=== PATIENT | male | born 1975 | race Caucasian/White ===

== ENCOUNTER 2024-11-08 07:25 | Emergency (ER) | payer BC, SELFPAY ==
[2024-11-08 07:27] VITALS: BP 145/98
--- NOTE | 2024-11-08 07:49 | ED.GENMED ---
History of Present Illness
<Sherron Huffman MD, Resident - Last Filed: 11/08/24 09:44>
General
Chief Complaint: Flank Pain
Time Seen by Provider: 11/08/24 07:49
History of Present Illness
History of Present Illness:
This is a 49-year-old male with past medical history of multiple kidney stones presents to ED complaining of right flank pain that radiates to the back. Patient reports pain started this morning, rates pain as an 8 out of 10. Describes pain as
a sharp pain that comes and goes. Laying down makes it worse, walking around makes it better. He reports he had a similar pain as at 6 years ago when he was diagnosed with his 1st and 2nd kidney stone episodes. In addition, patient admits nausea
and vomiting that started this morning. He denies fever, chills. He reports brown urine although no pain with urination and no difficulty urinating. His previous episodes of kidney stones passed on its own.
Past History
<Sherron Huffman MD, Resident - Last Filed: 11/08/24 09:44>
Past History
ED Past Medical History: Other (Kidney stones)
ED Past Surgical History: Orthopedic (Left leg surgery)
Social History
Tobacco: Non-smoker
Alcohol: Occasional
Drug: None
Review of Systems
<Sherron Huffman MD, Resident - Last Filed: 11/08/24 09:44>
Review of Systems
All Other Systems: ROS reviewed and negative except as documented in HPI and ROS
Phy Exam
<Sherron Huffman MD, Resident - Last Filed: 11/08/24 09:44>
General Physical Exam
General Presentation: well appearing and moderate distress
General Mental: alert
ENT Exam
ENT Exam: EOMI and neck supple
Cardiovascular Exam
Cardiovascular Exam: regular rate/rhythm, no edema and no murmur
Pulmonary Exam
Pulmonary Exam: lungs clear and no respiratory distress
Gastrointestinal Exam
Gastrointestinal Exam: normal bowel sounds, soft, non distended and tender (Right lower quadrant tenderness)
Neurological Exam
Neurological Exam: alert and oriented x3
Musculoskeletal Exam
Musculoskeletal Exam: full ROM and no edema
Psychiatric Exam
Psychiatric Exam: normal mood/affect
Course
<Sherron Huffman MD, Resident - Last Filed: 11/08/24 09:44>
Orders/Labs/Results
Orders:
Orders
11/08/24 07:38
Complete Blood Count/With Diff Urgent
Comprehensive Metabolic Panel Urgent
Urinalysis Reflex To Culture Urgent
Date Specimen was Collected: 11/08/24
Time Specimen was Collected: 07:31
Urine Microscopic Reflex Cult Urgent
Urine Culture Urgent
PINA Source: U
Specimen Description:
Obtained by: Random
Date Specimen was Collected: 11/08/24
Time Specimen was Collected: 07:31
11/08/24 08:04
0.9% Sodium Chloride 1000 ml [Nss] 1,000 ml IV BOLUS
HYDROmorphone [Dilaudid] 1 mg IV NOW STA
Ketorolac [Toradol] 30 mg IV NOW STA
Ondansetron Injectable [Zofran] 4 mg IV NOW STA
11/08/24 08:06
CT Abd/pel Without Iv Or Oral Urgent
Comment:
Reason For Exam: rflakn pain
Abnormal Lab Results
11/08/24
07:38
Carbon Dioxide 31 H mmol/L
(22-30)
Glucose 148 H mg/dl
(70-99)
Calcium 10.4 H mg/dl
(8.4-10.2)
Ur Occult Blood Reflex 4+ A
(Negative)
Leukocyte Esterase Rfl 1+ A
(Negative)
Urine RBC >100 A /HPF
(0-2)
Urine Bacteria (Reflex) Few A
(Negative)
Urine Albumin (Reflex) 3+ A
(Neg - Trace)
11/08/24 07:38
11/08/24 07:38
Vital Signs
Initial and Last Documented VS:
Initial Vital Signs
Temp Pulse Resp BP Pulse Ox
98.0 F 67 18 145/98 100
11/08/24 07:27 11/08/24 07:27 11/08/24 07:27 11/08/24 07:27 11/08/24 07:27
Last Documented Vital Signs
Temp Pulse Resp BP Pulse Ox
97.6 F 80 20 131/89 95
11/08/24 08:20 11/08/24 08:20 11/08/24 08:20 11/08/24 08:20 11/08/24 08:20
<Craig Desai, DO - Last Filed: 11/08/24 08:29>
Orders/Labs/Results
Orders:
Orders
11/08/24 07:38
Complete Blood Count/With Diff Urgent
Comprehensive Metabolic Panel Urgent
Urinalysis Reflex To Culture Urgent
Date Specimen was Collected: 11/08/24
Time Specimen was Collected: 07:31
Urine Microscopic Reflex Cult Urgent
Urine Culture Urgent
PINA Source: U
Specimen Description:
Obtained by: Random
Date Specimen was Collected: 11/08/24
Time Specimen was Collected: 07:31
11/08/24 08:04
0.9% Sodium Chloride 1000 ml [Nss] 1,000 ml IV BOLUS
HYDROmorphone [Dilaudid] 1 mg IV NOW STA
Ketorolac [Toradol] 30 mg IV NOW STA
Ondansetron Injectable [Zofran] 4 mg IV NOW STA
11/08/24 08:06
CT Abd/pel Without Iv Or Oral Urgent
Comment:
Reason For Exam: rflakn pain
Abnormal Lab Results
11/08/24
07:38
Carbon Dioxide 31 H mmol/L
(22-30)
Glucose 148 H mg/dl
(70-99)
Calcium 10.4 H mg/dl
(8.4-10.2)
Ur Occult Blood Reflex 4+ A
(Negative)
Leukocyte Esterase Rfl 1+ A
(Negative)
Urine RBC >100 A /HPF
(0-2)
Urine Bacteria (Reflex) Few A
(Negative)
Urine Albumin (Reflex) 3+ A
(Neg - Trace)
11/08/24 07:38
11/08/24 07:38
Vital Signs
Initial and Last Documented VS:
Initial Vital Signs
Temp Pulse Resp BP Pulse Ox
98.0 F 67 18 145/98 100
11/08/24 07:27 11/08/24 07:27 11/08/24 07:27 11/08/24 07:27 11/08/24 07:27
Last Documented Vital Signs
Temp Pulse Resp BP Pulse Ox
97.6 F 80 20 131/89 95
11/08/24 08:20 11/08/24 08:20 11/08/24 08:20 11/08/24 08:20 11/08/24 08:20
<Sherron Huffman MD, Resident - Last Filed: 11/08/24 09:44>
MDM/Problems Addressed
MDM/Problems Addressed:
49-year-old male presents with right flank pain that radiates to the back. In addition, admits nausea and vomiting. Patient in mild distress on presentation, abdomen soft, tender in right lower quadrant region. Labs with normal BUN, creatinine.
Will start on pain meds, IV fluids and Zofran. Check urinalysis, imaging with CT scan of abdomen.
<Sherron Huffman MD, Resident - Last Filed: 11/08/24 09:44>
*Critical Care Note
Total Time (30-74mins, 75-104mins- exclusive of procedures): Not Applicable
ED Attending Note
<Sherron Huffman MD, Resident - Last Filed: 11/08/24 09:44>
-
Portions of this chart may have been created with voice recognition software.� Occasional wrong word or��sound alike� substitutions may have occurred due to the inherent limitations of voice recognition software.
<Craig Desai DO - Last Filed: 11/08/24 08:29>
ED Attending Note
Patient seen and examined by attending physician: Yes
I performed a history and physical exam of patient and discussed management with resident, I reviewed resident's note and agree with documented findings and plan of care.: Yes
ED Attending Note:
Seen with resident examined independently right flank history of stones, nausea sharp, no fever, never required intervention for the stones, CT scan labs antiemetics analgesics
Discharge Plan
Departure
Patient Disposition: Home (Routine Discharge)
Date of Disposition: 11/08/24
Time of Disposition: 09:41
Patient with high blood pressure during this ER visit?: No
Condition: Good
Discharge Problem:
Kidney stone on right side
Instructions: Kidney Stones (DC), Renal Colic (DC)
Prescriptions:
New
tamsulosin [Flomax] 0.4 mg capsule
0.4 mg PO HS Qty: 10 0RF
ibuprofen 600 mg tablet
600 mg PO Q6H PRN (Reason: Pain) Qty: 20 0RF
ondansetron 4 mg tablet,disintegrating
4 mg PO TID PRN (Reason: nausea and vomiting) Qty: 10 0RF
oxycodone-acetaminophen [Percocet] 5-325 mg tablet
1 tab PO Q4HPRN PRN (Reason: pain) Qty: 10 0RF
Referrals:
Pato Carpio MD [Active] -
NONE,* [Family Provider] -
Activity Restrictions/Additional Instructions:
Return to the ER if severe pain uncontrolled with your pain meds or fever or chills
Interventions
Interventions:
*Risk Screen - Suicide Last Done: 11/08/24 07:27
*General Assessment Last Done: 11/08/24 07:27
*Neglect/Abuse Screening Last Done: 11/08/24 07:27
*ED- Fall Risk Assessment Last Done: 11/08/24 08:20
*ED COVID-19 Vaccine History Last Done: 11/08/24 07:27
VV-Lnedvd-Cmwydpwnyb Assessment Last Done: 11/08/24 08:20
ED-Male Genitourinary Assessment Last Done: 11/08/24 08:20
Discharge Date and Time
Print Language: CROATIAN
[2024-11-08 07:54] LABS: % Basophils 0.3 % (0-2); % Eosinophils 1.9 % (0-6); % Immature Granulocytes 0.3 % (0-0.5); % Lymphocytes 25.9 % (20.5-51.1); % Monocytes 5.4 % (1.7-9.3); % Neutrophils 66.2 % (42.2-75.2); Absolute Eosinophils 0.1 10^3/uL (0-0.7); Absolute Lymphocytes 1.9 10^3/uL (1.2-3.4); Absolute Monocytes 0.4 10^3/uL (0.1-0.6); Absolute Neutrophils 4.8 10^3/uL (1.4-6.5); Hematocrit 45.7 % (39.0-52.0); Hemoglobin 15.4 g/dL (13.0-18.0); Mean Corp Hgb Conc. 33.7 g/dL (33.0-37.0); Mean Corpuscular Hgb 29.8 pg (27.0-31.0); Mean Corpuscular Volume 88.4 fL (80.0-94.0); Mean Platelet Volume 9.8 fL (7.4-10.4); Nucleated Red Blood Cells % 0 % (-); Platelet Count 250 10^3/uL (130-400); Red Blood Cell Count 5.17 10^6/uL (4.70-6.10); Red Cell Dist. Width 13.2 % (11.5-14.5); White Blood Cell Count 7.3 10^3/uL (4.8-10.8)
[2024-11-08 08:03] LABS: Urine Albumin 3+ (Neg - Trace); Urine Bilirubin Negative (Negative); Urine Character Cloudy (Clear); Urine Color Brown; Urine Glucose Negative (Negative); Urine Ketone Negative (Negative); Urine Leukocyte 1+ (Negative); Urine Nitrite Negative (Negative); Urine Occult Blood 4+ (Negative); Urine Specific Gravity 1.025 (<1.030); Urine Urobilinogen 1+ (Neg - 1+)
[2024-11-08 08:06] LABS: ALT (SGPT) 38 U/L (0-50); AST (SGOT) 31 U/L (17-59); Albumin 4.5 g/dl (3.5-5.0); Alkaline Phosphatase 74 U/L (38-126); Blood Urea Nitrogen 16 mg/dl (9-20); Calcium 10.4 mg/dl (8.4-10.2); Carbon Dioxide 31 mmol/L (22-30); Chloride 105 mmol/L (98-107); Glucose 148 mg/dl (70-99); Potassium 4.7 mmol/L (3.5-5.1); Sodium 143 mmol/L (135-145); Total Bilirubin 0.7 mg/dl (0.2-1.3); Total Protein 7.5 g/dl (6.3-8.2); eGFR > 60.00
[2024-11-08 08:14] VITALS: BP 131/89
[2024-11-08 08:15] VITALS: BMI 26.2
[2024-11-08] MEDS: ZOFRAN 4 MG IV (08:16)
[2024-11-08] MEDS: TORADOL 30 MG IV (08:16)
[2024-11-08] MEDS: NSS 1000 IV (08:16)
[2024-11-08] MEDS: DILAUDID 1 MG IV (08:16)
[2024-11-08 08:20] VITALS: BP 131/89
[2024-11-08 08:25] LABS: Urine Bacteria Few (Negative); Urine Red Blood Cell >100 /HPF (0-2); Urine Squamous Cell 0-2 /LPF (Few)
[2024-11-08 09:06] VITALS: BP 118/79
[2024-11-08 10:01] VITALS: BP 114/81
[2024-11-08 10:04] VITALS: BP 114/81
== END 2024-11-08 10:06 | disposition home or self-care (01) ==
LOC: EMR 07:25
PROVIDERS: EMERGENCY PHYSICIAN Emergency Medicine
DX: N20.1 Calculus of ureter (principal); Z87.442 Personal history of urinary calculi
CPT/HCPCS: 99285; 96374; 96375 ×2; 74176; 80053; 81003; 81015; 85025; 87086

== ENCOUNTER → 2025-02-14 08:12 | Outpatient (REF) | payer BC, SELFPAY | LOC: RAD 08:12 | PROVIDERS: ATTENDING PHYSICIAN Surgery | DX: N13.2 Hydronephrosis with renal and ureteral calculous obstruction (principal) | CPT/HCPCS: 74018 ==

== ENCOUNTER → 2025-02-16 08:15 | Outpatient (REF) | payer BC, SELFPAY | LOC: CLAB 08:15 | PROVIDERS: ATTENDING PHYSICIAN Surgery | DX: N13.2 Hydronephrosis with renal and ureteral calculous obstruction (principal) | CPT/HCPCS: 82365 ==